=== PATIENT | female | born 1985 | race Caucasian/White ===

== ENCOUNTER 2017-04-22 18:05 | Emergency (ER) | payer OTHER ==
[~2017-04-22] VITALS: Ht 162.6 cm; Wt 97.0 kg
[~2017-04-22 18:05] MED LIST: CALC-649 PO; IBUP800T25 GTB; PERCOCET PO; PREN-39 PO
[2017-04-22 18:36] VITALS: Ht 162.6 cm; Wt 97.0 kg
[2017-04-22 19:42] LABS: URINE BLOOD (Dip) POC 2+ (NEGATIVE)
--- NOTE | 2017-04-22 21:57 | RADRPT ---
PROCEDURE: Retroperitoneal US. CLINICAL INDICATION: hematuria TECHNIQUE: Multiple sonographic images of the kidneys and retroperitoneum were obtained. The imag es were reviewed on a PACS workstation. COMPARISON: No prior studies are available for comparison. FINDINGS: The kidneys are normal in size, contour, cortical thickness and cortical echogenicity. The right kidney measures 10.2 cm. The left kidney measures 11.8 cm. No kidney stones are visualized. There is mild right-sided hydronephrosis. The urinary bladder is normal. RPTAT: AA IMPRESSION: Mild right-sided hydronephrosis. .Sanjeev eCdillo MD, Date Time Electronically viewed and signed by .Sanjeev Cedillo MD, MD on 04/22/2017 21:57 .S/
[2017-04-22 22:28] VITALS: BP 115/57; PULSE 70; RESP 20; TEMP 98.3
--- NOTE | 2017-04-22 23:30 | ERD ---
ER Documentation Chief Complaint Date/Time DATE: 04/22/17 TIME: 23:22 Chief Complaint pelvic pain x 4 days HPI 32-year-old female is complaining of suprapubic cramping and hematuria 5 days. Patient initially thought she was menstruating, but she did not have any blood staining on the underwear, only noticed the redness and spotting when she is urinating. Patient is currently breast-feeding, her LMP was 03/14/2017. Denies fever or chills. Denies dysuria. Denies flank pain. ROS All systems reviewed and are negative except as per history of present illness. Medications Home Meds Active Scripts Oxycodone Hcl/Acetaminophen (Percocet) 1 Tab Tab, 2 TAB PO Q4H Y for PAIN, #30 TAB 0 Refills Prov:KASHIF PASCUAL MD 05/31/16 Ibuprofen* (Ibuprofen*) 800 Mg Tablet, 800 MG GTB Q8, #20 TAB 0 Refills Prov:KASHIF PASCUAL MD 05/31/16 Reported Medications Calcium Carbonate (Calcium) 1 Tab Tablet, 1 TAB PO BID 10/06/12 Vits W-Ca,Fe,Fa(<1MG) ( Vitamins) 1 Tab Tablet, 1 TAB PO DAILY 10/06/12 Allergies Allergies: Coded Allergies: No Known Drug Allergies (Verified Allergy, Unknown, 01/07/16) PMhx/Soc Medical and Surgical Hx: pt denies Medical Hx History of Surgery: Yes ( section) Hx Miscellaneous Medical Probl: No Hx Alcohol Use: No Hx Substance Use: No Hx Tobacco Use: No Smoking Status: Never smoker Physical Exam Vitals Vital Signs Date Time Temp Pulse Resp B/P Pulse Ox O2 Delivery O2 Flow Rate FiO2 04/22/17 22:28 98.3 70 20 115/57 100 Room Air 04/22/17 18:36 98.3 78 20 118/58 99 Physical Exam General: Well-developed, well-nourished, conscious and coherent, in no distress Skin: Warm and dry without rash, good texture and turgor Head: Normocephalic without evidence of trauma Eyes: Sclera and conjunctivae normal; pupils equal, round, and reactive to light; extraocular movements are intact Neck: Supple without meningismus or adenopathy. Carotids are equal. Trachea midline. No bruits or JVD Chest: Normal AP diameter. Good expansion without retractions. Nontender. Lungs are clear to auscultate bilaterally with good tidal volume Heart: Regular rate and rhythm. No murmur, rub, or gallops heard Abdomen: Soft and nontender without masses, guarding, or rebound. Bowel sounds are active. No hepatosplenomegaly Back: Without spinal or CVA tenderness Pelvis: Mild suprapubic tenderness Extremities: Full range of motion. Good strength bilaterally. No clubbing, cyanosis, or edema. Peripheral pulses are intact. Sensation intact Neuro: Alert and oriented 4, GCS 15. Cranial nerves grossly intact. Motor and sensory exams nonfocal. Moves all extremities. Speech clear. Gait normal Results 24 hrs Laboratory Tests Test 04/22/17 19:45 Bedside Urine pH (LAB) 5.5 Bedside Urine Protein (LAB) 1+ Bedside Urine Glucose (UA) Negative Bedside Urine Ketones (LAB) Negative Bedside Urine Blood 2+ Bedside Urine Nitrite (LAB) Negative Bedside Urine Leukocyte Esterase (L Negative Procedures/MDM Well-appearing 32-year-old female presented ED with suprapubic cramping and hematuria 5 days. Differentials include but not limited to UTI, pyelonephritis , urolithiasis, bladder cancer, early threatened , or normal menstruation. Urine test was negative. Urine dip showed 2+ blood, 1 + protein, otherwise negative. Negative for urinary tract infection or pyelonephritis. Renal ultrasound was obtained, no hydronephrosis or urolithiasis was seen on ultrasound. I this time I do not know the cause of her hematuria. I informed patient of all the testing results, and advised patient to follow-up with her PCP for urology referral. Patient advised to take Tylenol for pain as needed. Patient appears well, stable for discharge and outpatient management. Medical decision making shared with patient and family. Education provided to patient and family. Patient and family expressed understanding of the plan. Medications on discharge: None. Follow-up: Primary care provider in 2-3 days or return to ED if worse. Departure Diagnosis: Primary Impression: Hematuria Condition: Stable Patient Instructions: Hematuria Additional Instructions: Call your primary care doctor TOMORROW for an appointment during the next 2-3 days.See the doctor sooner or return here if your condition worsens before your appointment time. Please ask your primary provider to refer you to a urologist. GOPAL PUENTES. RADHA April 22, 2017 23:30
== END 2017-04-22 22:30 | disposition home or self-care (01) ==
LOC: FTE 18:05
DX: R31.9 Hematuria, unspecified (principal)
CPT/HCPCS: 76775; 81003